=== PATIENT | male | born 1955 | race Caucasian/White ===

== ENCOUNTER 2018-10-05 12:38 | Emergency (ER) | payer MEDICAID ==
[2018-10-05] MEDS ORDERED: Sodium Chloride 0.9% 1,000 ML IV ONE (12:54)
[2018-10-05 13:21] LABS: % LYMPHOCYTES 19.4 % (20.0-50.0); % MONOCYTES 7.6 % (2.0-10.0); EOSINOPHILE ABSOLUTE 0.1 Th/cmm (0.1-0.4); HEMATOCRIT 45.9 % (41.0-60); HEMOGLOBIN 15.6 gm/dL (12-16); LYMPHOCYTE ABSOLUTE 1.1 Th/cmm (1.5-3.0); MEAN CORPUSCULAR HEMOGLOBIN 31.2 pg (26.0-30.0); MEAN CORPUSCULAR HGB CONC 33.9 pg (28.0-36.0); MONOCYTE ABSOLUTE 0.4 Th/cmm (0.3-1.0); NEUTROPHILE ABSOLUTE 4.2 Th/cmm (1.8-8.0); PLATELET COUNT 251 Th/cmm (150-400); RED BLOOD COUNT 4.99 Mil/cmm (4.30-5.70); RED CELL DISTRIBUTION WIDTH 14.2 % (11.5-20.0); WHITE BLOOD COUNT 5.8 Th/cmm (4.8-10.8)
--- NOTE | 2018-10-05 13:26 | Diagnostic Imaging Report ---
CT abdomen and pelvis without intravenous contrast Indication: Abdominal pain Comparison: None, Technique: Axial images were obtained from the lung bases to the bilateral proximal femurs without IV contrast. Coronal reconstructions were made. total DLP: 267, CTDI6.4 FINDINGS: Hypoventilatory and atelectatic changes of the lung bases are noted. Assessment of the solid organs is limited due to lack of IV contrast. No focal hepatic lesions. Limited assessment of the spleen demonstrates no focal lesions. No focal pancreatic or adrenal lesions. Diverticulosis is noted. Small amount of free fluid is noted within the pelvis. Moderate stool is seen within the colon. Appendix is not well visualized. Mild atherosclerosis is noted. Degenerative changes of the spine are noted. IMPRESSION: Small amount of free fluid in the pelvis, etiology uncertain. Inflammatory process cannot be excluded Diverticulosis. No obvious diverticulitis identified, however, given the small amount of fluid within the pelvis inflammatory process in this region cannot be completely excluded Appendix is not visualized No hydronephrosis. Mild atherosclerosis.
[2018-10-05 13:37] LABS: ALB/GLOB RATIO 1.6 (1.0-1.8); ALBUMIN 4.9 gm/dL (4.2-5.5); ALKALINE PHOSPHATASE 76 U/L (34-104); AMYLASE SERUM 49 U/L (29-103); ANION GAP 11.5 (7.0-16.0); BILIRUBIN,TOTAL 0.7 mg/dL (0.3-1.0); BUN - UREA NITROGEN 7 mg/dL (7-25); CALCIUM SERUM 10.4 mg/dL (8.6-10.3); CARBON DIOXIDE 24.4 mEq/L (21.0-31.0); CHLORIDE 95 mEq/L (98-107); CREATININE - SERUM 0.8 mg/dL (0.7-1.3); GFR AFRICAN-AMERICAN > 60.0 ml/min (>90); GFR NON AFRICAN-AMERICAN > 60.0 ml/min; GLUCOSE 100 mg/dL (70-105); LIPASE 20 U/L (11-82); POTASSIUM SERUM 3.9 mEq/L (3.5-5.1); SGOT 40 U/L (13-39); SGPT/ALT 71 U/L (7-52); SODIUM SERUM 127 mEq/L (136-145)
[2018-10-05] MEDS ORDERED: Morphine Sulfate 2 mg/mL 1mL Syr IV STA ×3 (14:14→20:16)
[2018-10-05] MEDS ORDERED: Morphine Sulfate 2 mg/mL 1mL Syr ONE ×3 (14:18→21:25)
[2018-10-05 14:19] LABS: URINE SOURCE CLEAN C
[2018-10-05 14:21] LABS: URINE BILIRUBIN NEGATIVE (NEGATIVE); URINE BLOOD NEGATIVE (NEGATIVE); URINE GLUCOSE (UA) NEGATIVE (NEGATIVE); URINE KETONE NEGATIVE (NEGATIVE); URINE LEUKOCYTE ESTERASE NEGATIVE (NEGATIVE); URINE NITRATE NEGATIVE (NEGATIVE); URINE PH 6.5 (4.6 - 8.0); URINE PROTEIN NEGATIVE (NEGATIVE)
[2018-10-05 14:23] LABS: URINE CLARITY CLEAR (CLEAR); URINE COLOR YELLOW; URINE MICROSCOPIC INDICATED? YES
[2018-10-05 14:45] LABS: URINE EPITHELIAL CELLS OCCASIONAL /lpf (FEW); URINE RBC NONE SEEN /hpf (0-5); URINE WBC 0-2 /hpf (0-5)
[2018-10-05 14:46] LABS: URINE BACTERIA OCCASIONAL /hpf (NONE SEEN)
--- NOTE | 2018-10-05 15:02 | ED Physician Chart ---
ED Chief Complaint/HPI - Patient Information Date Seen:: 10/05/18 Time Seen:: 13:00 Chief Complaint:: Abdominal Pain History of Present Illness:: onset x 3 days of diffuse, intermittent, crampy abdominal pain, N/V/D; pt denies trauma, H/As, S/T, SIs, C/P, cough, SOB, A/C, fever, chills, or urinary s /s Allergies:: Allergies Allergy/AdvReac Type Severity Reaction Status Date / Time ibuprofen [From Motrin] Allergy Verified 10/05/18 13:07 Vitals:: Vital Signs - 8 hr 10/05/18 10/05/18 10/05/18 13:01 14:09 14:53 Temp 97.9 F 98.2 F 97.9 F HR 76 65 67 RR 18 16 16 BP 140/60 165/92 149/84 O2 Sat % 98 98 99 Historian:: Patient Review:: Nurse's Note Reviewed, Old Chart Reviewed ED Review of Systems - Review of Systems General/Constitutional: No fever, No chills, No weight loss, No weakness, No diaphoresis, No edema, No loss of appetite Skin: No skin lesions, No rash, No bruising Head: No headache, No light-headedness Eyes: No loss of vision, No pain, No diplopia ENT: No earache, No nasal drainage, No sore throat, No tinnitus Neck: No neck pain, No swelling, No thyromegaly, No stiffness, No mass noted Cardio Vascular: No chest pain, No palpitations, No PND, No orthopnea, No edema Pulmonary: No SOB, No cough, No sputum, No wheezing GI: No nausea, No vomiting, No diarrhea, No pain, No melena, No hematochezia, No constipation, No hematemesis G/U: No dysuria, No frequency, No hematuria, No nacturia Musculoskeletal: No bone or joint pain, No back pain, No muscle pain Endocrine: No polyuria, No polydipsia Psychiatric: Prior psych history, Depression, Anxiety, No suicidal ideation, No homicidal ideation, No auditory hallucination, No visual hallucination Hematopoietic: No bruising, No lymphadenopathy Allergic/Immuno: No urticaria, No angioedema Neurological: No syncope, No focal symptoms, No weakness, No paresthesia, No headache, No seizure, No dizziness, No confusion, No vertigo ED Past Medical History - Past Medical History Obtainable: Yes Past Medical History: HTN, Asthma/COPD, PUD/GERD Family History: HTN Social History: Non Smoker, No Alcohol, No Drug Use, Surgical History: Appendectomy Psychiatricy History: Depression Medication: Reviewed Family Medical History - Family Member Mother History Unknown: Yes ED Physical Exam - Physical Examination General/Constitutional: Awake, Well-developed, well-nourished, Alert, No distress, GCS 15, Non-toxic appearing, Ambulatory Head: Atraumatic Eyes: Lids, conjuctiva normal, PERRL, EOMI Skin: Nl inspection, No rash, No skin lesions, No ecchymosis, Well hydrated, No lymphadenopathy ENMT: External ears, nose nl, TM canals nl, Nasal exam nl, Lips, teeth, gums nl , Oropharynx nl, Tonsils nl Neck: Nontender, Full ROM w/o pain, No JVD, No nuchal rigidity, No bruit, No mass, No stridor Respiratory: Nl effort/Exclusion, Clear to Auscultation, No Wheeze/Rhonchi/Rales Cardio Vascular: RRR, No murmur, gallop, rubs, NL S1 S2, Carotid/Femoral/Distal pulses equal bilaterally GI: No tenderness/rebounding/guarding, No organomegaly, No hernia, Normal BS's, Nondistended, No mass/bruits, No McBurney tenderness, Rectum exam nl Other GI comments:: + LLQ Tenderness : No CVA tenderness Extremities: No tenderness or effusion, Full ROM, normal strength in all extremities, No edema, Normal digits & nails Neuro/Psych: Alert/oriented, DTR's symmetric, Normal sensory exam, Normal motor strength, Judgement/insight normal, Mood normal, Normal gait, No focal deficits Misc: Normal back, No paraspinal tenderness ED Labs/Radiology/EKG Results - Lab Results Results: Laboratory Tests 10/05/18 10/05/18 10/05/18 13:13 13:13 13:13 WBC 5.8 RBC 4.99 Hgb 15.6 Hct 45.9 MCV 92.0 MCH 31.2 H MCHC Differential 33.9 RDW 14.2 Plt Count 251 MPV 7.3 Neutrophils % 71.0 Lymphocytes % 19.4 L Monocytes % 7.6 Eosinophils % 2.0 Basophils % 0.0 Sodium 127 L Potassium 3.9 Chloride 95 L Carbon Dioxide 24.4 Anion Gap 11.5 BUN 7 Creatinine 0.8 Est GFR ( Amer) > 60.0 Est GFR (Non-Af Amer) > 60.0 BUN/Creatinine Ratio 8.8 Glucose 100 Calcium 10.4 H Total Bilirubin 0.7 AST 40 H ALT 71 H Alkaline Phosphatase 76 Troponin I 0.01 Total Protein 8.0 Albumin 4.9 Globulin 3.1 Albumin/Globulin Ratio 1.6 Amylase 49 Lipase 20 Urine Source Urine Color Urine Clarity Urine pH Ur Specific [place] Urine Protein Urine Glucose (UA) Urine Ketones Urine Blood Urine Nitrate Urine Bilirubin Urine Urobilinogen Ur Leukocyte Esterase Urine RBC Urine WBC Ur Epithelial Cells Urine Bacteria 10/05/18 14:15 WBC RBC Hgb Hct MCV MCH MCHC Differential RDW Plt Count MPV Neutrophils % Lymphocytes % Monocytes % Eosinophils % Basophils % Sodium Potassium Chloride Carbon Dioxide Anion Gap BUN Creatinine Est GFR ( Amer) Est GFR (Non-Af Amer) BUN/Creatinine Ratio Glucose Calcium Total Bilirubin AST ALT Alkaline Phosphatase Troponin I Total Protein Albumin Globulin Albumin/Globulin Ratio Amylase Lipase Urine Source CLEAN C Urine Color YELLOW Urine Clarity CLEAR Urine pH 6.5 Ur Specific [place] 1.015 Urine Protein NEGATIVE Urine Glucose (UA) NEGATIVE Urine Ketones NEGATIVE Urine Blood NEGATIVE Urine Nitrate NEGATIVE Urine Bilirubin NEGATIVE Urine Urobilinogen 1.0 Ur Leukocyte Esterase NEGATIVE Urine RBC NONE SEEN Urine WBC 0-2 Ur Epithelial Cells OCCASIONAL Urine Bacteria OCCASIONAL Comments:: Reviewed - Radiology Results Comments:: Reviewed; + Diverticulitis - EKG Interpretations Comments:: Reviewed ED Septic Shock - . Is Septic Shock (SBP<90, OR Lactate>4 mmol\L) present?: No - <6hrs of presentation: Vital Signs: Vital Signs - 8 hr 10/05/18 10/05/18 10/05/18 13:01 14:09 14:53 Temp 97.9 F 98.2 F 97.9 F HR 76 65 67 RR 18 16 16 BP 140/60 165/92 149/84 O2 Sat % 98 98 99 ED Reassessment (Disposition) - Reassessment Reassessment Condition:: Improved - Diagnosis Diagnosis:: Abdominal Pain; N/V/D; AGE; Elevated LFTs; Hyponatremia; Hypercalcemia; Dehydration - Aftercare/Follow up Instructions Aftercare/Follow-Up Instructions:: Counseled pt regarding lab results/diagnosis & need follow up, Counseled pt & family regarding lab results/diagnosis & need follow up - Patient Disposition Discharge/Transfer:: Acute Care (other hosp) Accepting Physician:: Dr. Rodriguez Time Called:: 1500 Time Responded:: 15:00 Admitted to:: Telemetry Spoke to:: Dr. Rodriguez Admitting Medical Physician:: Dr. Rodriguez Condition at Disposition:: Stable, Improved (pt to be transferred via [facility] as a direct admission to [facility])
[2018-10-05] MEDS ORDERED: Levofloxacin 500mg/100mL 500 MG/100 ML BAG IV ONE (17:36)
[2018-10-05] MEDS ORDERED: Morphine Sulfate 2 mg/mL 1mL Syr IM STA (21:20)
== END 2018-10-05 21:50 | disposition short-term general hospital (02) ==
LOC: ER 12:38
DX: K52.9 Noninfective gastroenteritis and colitis, unspecified (principal); E83.52 Hypercalcemia; E87.1 Hypo-osmolality and hyponatremia; E86.0 Dehydration; R94.5 Abnormal results of liver function studies; I10 Essential (primary) hypertension; J44.9 Chronic obstructive pulmonary disease, unspecified; K21.9 Gastro-esophageal reflux disease without esophagitis; F32.9 Major depressive disorder, single episode, unspecified; Z90.49 Acquired absence of other specified parts of digestive tract; Z88.6 Allergy status to analgesic agent
CPT/HCPCS: 99285; 96372; 96374; 96375; 96376; 93005; 74176; 84484; 36415; 85025; 81001; 82150; 83690; 80053; J2270 ×3; J2405 ×2; J7030